=== PATIENT | female | born 1945 | race African-American/Black ===

== ENCOUNTER 2021-09-13 08:07 | Emergency (ER) | payer MEDICARE, MEDICAID ==
[~2021-09-13] VITALS: Ht 162.6 cm; Wt 73.0 kg
[2021-09-13] MEDS ORDERED: IBUPROFEN 600MG TABLET PO ONE (08:45)
[2021-09-13] MEDS ORDERED: CYCLOBENZAPRINE 10MG TABLET PO ONE (08:45)
[2021-09-13 09:10] LABS: BASOPHILS % 0.6 % (0.0-2.0); EOSINOPHILS % 0.9 % (0.0-5.0); HEMOGLOBIN. 11.4 g/dL (12.0-16.0); LYMPHOCYTES % 23.6 % (20.0-50.0); MEAN CORPUSCULAR VOLUME 74.4 fL (81.0-99.0); MEAN PLATELET VOLUME 6.8 fl (7.4-10.4); NEUTROPHILS % 66.9 % (40.0-76.0); PLATELET 349 x1000/uL (130-400); RED BLOOD CELL COUNT 4.58 mill/uL (4.2-5.4); RED CELL DISTRIBUTION WIDTH 14.6 % (11.6-14.6)
[2021-09-13 09:16] LABS: CHLORIDE 105 mEq/L (98-107)
[2021-09-13] MEDS ORDERED: CYCL10TA7 MT (10:57)
[2021-09-13] MEDS ORDERED: IBUP-2030 MT (10:57)
[2021-09-13 11:39] VITALS: BP 156/91
== END 2021-09-13 11:41 | disposition home or self-care (01) ==
LOC: ER 08:07
DX: R16.1 Splenomegaly, not elsewhere classified (principal); M54.9 Dorsalgia, unspecified; I10 Essential (primary) hypertension; E78.00 Pure hypercholesterolemia, unspecified; E11.9 Type 2 diabetes mellitus without complications; Z90.710 Acquired absence of both cervix and uterus; Z98.890 Other specified postprocedural states; Z86.73 Personal history of transient ischemic attack (TIA), and cerebral infarction without residual deficits; Z91.040 Latex allergy status; Z88.0 Allergy status to penicillin; Z79.899 Other long term (current) drug therapy
CPT/HCPCS: 36415; 74176; 80053; 85025; 99284

== ENCOUNTER → 2022-05-01 | Outpatient (CLI) | payer MEDICARE, MEDICAID ==
[~2022-05-01] MED LIST: CYCL10TA21 MT; IBUP-2030 MT
== END | disposition home or self-care (01) ==
LOC: NM 08:41
PROVIDERS: ATTEND Internal Medicine Geriatric Medicine
DX: M41.85 Other forms of scoliosis, thoracolumbar region (principal); C80.1 Malignant (primary) neoplasm, unspecified; M54.50 Low back pain, unspecified; R10.9 Unspecified abdominal pain
CPT/HCPCS: 78306; A9503

== ENCOUNTER 2022-05-11 10:34 | Inpatient (IN) | payer MEDICARE, MEDICAID ==
[~2022-05-11] VITALS: Ht 162.6 cm; Wt 73.5 kg
[2022-05-11] MEDS ORDERED: MORPHINE SULFATE 4 MG/ML CPJ (NOT FOR IM USE) IV STA (11:09)
[2022-05-11] MEDS ORDERED: SODIUM CHLORIDE 0.9% 500 ML IV ONE (11:15)
[2022-05-11 12:05] LABS: BASOPHILS % 0.5 % (0.0-2.0); EOSINOPHILS % 0.1 % (0.0-5.0); HEMATOCRIT. 44.4 % (36.0-48.0); LYMPHOCYTES % 25.9 % (20.0-50.0); MEAN CORPUSCULAR HEMOGLOBIN 23.4 pg (28.0-32.0); MEAN CORPUSCULAR VOLUME 73.9 fL (81.0-99.0); MEAN PLATELET VOLUME 6.6 fl (7.4-10.4); MONOCYTES % 5.8 % (2.0-8.0); NEUTROPHILS % 67.7 % (40.0-76.0); PLATELET 747 x1000/uL (130-400); RED CELL DISTRIBUTION WIDTH 17.8 % (11.6-14.6)
[2022-05-11 12:13] LABS: CHLORIDE 94 mEq/L (98-107)
[2022-05-11] MEDS ORDERED: ASPIRIN 325MG TABLET PO ONE (13:15)
[2022-05-11] MEDS ORDERED: CLONIDINE 0.1MG TABLET PO PRN (14:15)
[2022-05-11] MEDS ORDERED: ONDANSETRON HCL 4MG/2ML INJ IV PRN (14:15)
[2022-05-11] MEDS ORDERED: DEXT 5%/0.45% NACL 1000ML 1,000 ML IV SCH (14:15)
[2022-05-11] MEDS ORDERED: ONDANSETRON HCL 4MG/2ML INJ IV ONE (14:30)
[2022-05-11] MEDS ORDERED: LACTULOSE 20G/30ML UDC PO PRN (15:00)
[2022-05-11] MEDS ORDERED: NA PHOS,M-B/NA PHOS,DI-BA ENEMA 118ML PR NR ×2 (15:00→20:00)
[2022-05-11] MEDS ORDERED: NALOXONE HCL 0.4MG/ML VIAL IV PRN (15:00)
[2022-05-11] MEDS ORDERED: ACETAMINOPHEN 325MG TABLET PO PRN (15:00)
[2022-05-11] MEDS: DOCUSATE SODIUM 100MG CAPSULE PO SCH ×2 (15:46→21:49)
[2022-05-11] MEDS: SODIUM CHLORIDE 0.9% 1,000 ML IV SCH (15:47)
[2022-05-11 17:35] VITALS: BP 134/77
[2022-05-11 20:00] VITALS: BP 130/83
[2022-05-11] MEDS ORDERED: BISACODYL 5MG TABLET PO NR (20:00)
[2022-05-11] MEDS: MORPHINE SULFATE 2 MG/ML CPJ (NOT FOR IM USE) IV PRN (22:03)
[2022-05-12] VITALS: BP 133/76
[2022-05-12] MEDS: SODIUM CHLORIDE 0.9% 1,000 ML IV SCH ×2 (01:03→10:30)
[2022-05-12 04:00] VITALS: BP 143/87
[2022-05-12 05:55] LABS: CLARITY URINE CLEAR (CLEAR); COLOR URINE YELLOW (YELLOW); KETONES URINE 1+ (NEGATIVE); LEUKOCYTE ESTERASE URINE 1+ (NEGATIVE); NITRITE URINE NEGATIVE (NEGATIVE); OCCULT BLOOD URINE NEGATIVE (NEGATIVE); PH URINE 5.5 (4.5-8.0); PROTEIN URINE 1+ (NEGATIVE); SPECIFIC GRAVITY URINE 1.021 (1.005-1.030)
[2022-05-12 07:36] LABS: BASOPHILS % 0.3 % (0.0-2.0); EOSINOPHILS % 0.1 % (0.0-5.0); HEMATOCRIT. 34.5 % (36.0-48.0); HEMOGLOBIN. 11.2 g/dL (12.0-16.0); LYMPHOCYTES % 25.2 % (20.0-50.0); MEAN CORPUSCULAR HEMOGLOBIN 23.6 pg (28.0-32.0); MEAN CORPUSCULAR VOLUME 72.7 fL (81.0-99.0); MEAN PLATELET VOLUME 6.4 fl (7.4-10.4); MONOCYTES % 7.2 % (2.0-8.0); NEUTROPHILS % 67.2 % (40.0-76.0); PLATELET 628 x1000/uL (130-400); RED BLOOD CELL COUNT 4.75 mill/uL (4.2-5.4); RED CELL DISTRIBUTION WIDTH 17.9 % (11.6-14.6)
[2022-05-12 07:51] LABS: CHLORIDE 97 mEq/L (98-107)
[2022-05-12 08:00] VITALS: BP 138/77
[2022-05-12] MEDS: DOCUSATE SODIUM 100MG CAPSULE PO SCH ×2 (09:34→18:58)
[2022-05-12] MEDS: MORPHINE SULFATE 2 MG/ML CPJ (NOT FOR IM USE) IV PRN ×2 (09:46→19:57)
[2022-05-12] MEDS ORDERED: NA PHOS,M-B/NA PHOS,DI-BA ENEMA 118ML PR NR (10:15)
[2022-05-12 16:00] VITALS: BP 149/85
[2022-05-12 20:00] VITALS: BP 138/84
[2022-05-13] VITALS: BP 136/72
[2022-05-13 04:00] VITALS: BP 129/81
[2022-05-13] MEDS: SODIUM CHLORIDE 0.9% 1,000 ML IV SCH ×3 (05:41→19:08)
[2022-05-13 08:00] VITALS: BP 120/80
[2022-05-13 09:58] LABS: BASOPHILS % 0.3 % (0.0-2.0); HEMATOCRIT. 33.9 % (36.0-48.0); HEMOGLOBIN. 11.1 g/dL (12.0-16.0); LYMPHOCYTES % 19.7 % (20.0-50.0); MEAN CORPUSCULAR HEMOGLOBIN 24.1 pg (28.0-32.0); MEAN CORPUSCULAR VOLUME 73.9 fL (81.0-99.0); MEAN PLATELET VOLUME 6.6 fl (7.4-10.4); MONOCYTES % 6.9 % (2.0-8.0); NEUTROPHILS % 73.1 % (40.0-76.0); PLATELET 577 x1000/uL (130-400); RED BLOOD CELL COUNT 4.59 mill/uL (4.2-5.4); RED CELL DISTRIBUTION WIDTH 17.5 % (11.6-14.6)
[2022-05-13] MEDS: DOCUSATE SODIUM 100MG CAPSULE PO SCH ×2 (10:05→17:00)
[2022-05-13] MEDS: HYDROCODONE/ACETAMINOPHEN 5/325MG TABLET PO PRN ×3 (10:20→19:06)
[2022-05-13 10:42] LABS: CHLORIDE 100 mEq/L (98-107)
[2022-05-13 12:00] VITALS: BP 108/73
[2022-05-13 16:00] VITALS: BP 108/73
[2022-05-13] MEDS: LACTULOSE 20G/30ML UDC PO SCH (17:00)
[2022-05-13] MEDS ORDERED: NA PHOS,M-B/NA PHOS,DI-BA ENEMA 118ML PR NR (17:00)
[2022-05-13 20:00] VITALS: BP 116/71
[2022-05-14] VITALS: BP 121/79
[2022-05-14] MEDS: LACTULOSE 20G/30ML UDC PO SCH ×3 (00:11→17:20)
[2022-05-14] MEDS: HYDROCODONE/ACETAMINOPHEN 5/325MG TABLET PO PRN ×4 (00:14→20:12)
[2022-05-14] MEDS: SODIUM CHLORIDE 0.9% 1,000 ML IV SCH ×3 (01:50→21:59)
[2022-05-14 04:00] VITALS: BP 112/59
[2022-05-14 08:00] VITALS: BP 114/76
[2022-05-14 08:05] LABS: BASOPHILS % 0.3 % (0.0-2.0); EOSINOPHILS % 0.1 % (0.0-5.0); HEMATOCRIT. 34.6 % (36.0-48.0); HEMOGLOBIN. 10.6 g/dL (12.0-16.0); LYMPHOCYTES % 18.5 % (20.0-50.0); MEAN CORPUSCULAR HEMOGLOBIN 23.3 pg (28.0-32.0); MEAN CORPUSCULAR VOLUME 75.9 fL (81.0-99.0); MEAN PLATELET VOLUME 6.7 fl (7.4-10.4); MONOCYTES % 8.3 % (2.0-8.0); NEUTROPHILS % 72.8 % (40.0-76.0); PLATELET 464 x1000/uL (130-400); RED BLOOD CELL COUNT 4.55 mill/uL (4.2-5.4); RED CELL DISTRIBUTION WIDTH 17.9 % (11.6-14.6)
[2022-05-14 08:08] LABS: CHLORIDE 99 mEq/L (98-107)
[2022-05-14 08:27] LABS: TOTAL IRON BINDING CAPACITY 190 ug/dL (250-450)
[2022-05-14 08:28] LABS: FOLIC ACID (FOLATE) SERUM 5.6 ng/mL (>5.38)
[2022-05-14] MEDS: DOCUSATE SODIUM 100MG CAPSULE PO SCH ×2 (09:39→17:20)
[2022-05-14] MEDS: PANTOPRAZOLE SODIUM 40 MG/VIAL IV SCH (09:40)
[2022-05-14] MEDS: MORPHINE SULFATE 2 MG/ML CPJ (NOT FOR IM USE) IV PRN (10:25)
[2022-05-14] MEDS ORDERED: LEVOFLOXACIN 500MG PREMIX 100 ML IV SCH (11:00)
[2022-05-14 12:00] VITALS: BP 117/78
[2022-05-14 16:00] VITALS: BP 124/84
[2022-05-14] MEDS ORDERED: SORBITOL 70% SOLN 30ML PO SCH (19:00)
[2022-05-14 20:00] VITALS: BP 113/67
[2022-05-15] VITALS (15 sets, daily range): BP systolic 76–118; BP diastolic 50–79
[2022-05-15] MEDS ORDERED: IOHEXOL-300 100 ML BOTTLE ONE (00:34)
[2022-05-15] MEDS: HYDROCODONE/ACETAMINOPHEN 5/325MG TABLET PO PRN ×2 (00:51→06:38)
[2022-05-15] MEDS: LACTULOSE 20G/30ML UDC PO SCH ×2 (01:00→08:44)
[2022-05-15 01:46] LABS: CLARITY URINE CLEAR (CLEAR); COLOR URINE YELLOW (YELLOW); KETONES URINE 2+ (NEGATIVE); LEUKOCYTE ESTERASE URINE NEGATIVE (NEGATIVE); NITRITE URINE NEGATIVE (NEGATIVE); OCCULT BLOOD URINE NEGATIVE (NEGATIVE); PH URINE 5.5 (4.5-8.0); PROTEIN URINE 1+ (NEGATIVE)
[2022-05-15] MEDS ORDERED: NA PHOS,M-B/NA PHOS,DI-BA ENEMA 118ML PR SCH (06:00)
[2022-05-15] MEDS: ACETAMINOPHEN 325MG TABLET PO PRN ×2 (08:41→15:58)
[2022-05-15] MEDS: PANTOPRAZOLE SODIUM 40 MG/VIAL IV SCH (08:42)
[2022-05-15] MEDS: SODIUM CHLORIDE 0.9% 1,000 ML IV SCH (08:44)
[2022-05-15] MEDS: DOCUSATE SODIUM 100MG CAPSULE PO SCH ×2 (08:44→17:00)
[2022-05-15] MEDS ORDERED: VERAPAMIL HCL 2.5 MG/1 ML 2ML VIAL IV NR (09:15)
[2022-05-15 09:24] LABS: BASOPHILS % 0.6 % (0.0-2.0); HEMATOCRIT. 33.3 % (36.0-48.0); HEMOGLOBIN. 10.5 g/dL (12.0-16.0); LYMPHOCYTES % 10.5 % (20.0-50.0); MEAN CORPUSCULAR HEMOGLOBIN 23.4 pg (28.0-32.0); MEAN CORPUSCULAR VOLUME 74.4 fL (81.0-99.0); MEAN PLATELET VOLUME 6.5 fl (7.4-10.4); MONOCYTES % 7.9 % (2.0-8.0); PLATELET 486 x1000/uL (130-400); RED BLOOD CELL COUNT 4.47 mill/uL (4.2-5.4); RED CELL DISTRIBUTION WIDTH 18.5 % (11.6-14.6)
[2022-05-15 09:30] LABS: CHLORIDE 103 mEq/L (98-107)
[2022-05-15] MEDS ORDERED: DILTIAZEM HCL 125 MG in DEXT 5% WATER 100 ML IV PRN (09:30)
[2022-05-15] MEDS ORDERED: SODIUM CHLORIDE 0.45% 500 ML IV SCH ×2 (10:30)
[2022-05-15] MEDS ORDERED: ENOXAPARIN 60MG/0.6ML SYR SUBCUT SCH (11:00)
[2022-05-15] MEDS ORDERED: LEVOFLOXACIN 250MG PREMIX 50 ML IV SCH (11:00)
[2022-05-15] MEDS: SODIUM CHLORIDE 0.45% 1,000 ML IV SCH ×2 (11:33→21:01)
[2022-05-15 12:47] LABS: INR 1.2; PROTHROMBIN TIME 13.2 sec (9.6-11.0)
[2022-05-15] MEDS: DILTIAZEM HCL 30MG TABLET PO SCH (18:00)
[2022-05-15] MEDS: ENOXAPARIN 60MG/0.6ML SYR SUBCUT SCH (20:58)
[2022-05-15] MEDS: MORPHINE SULFATE 2 MG/ML CPJ (NOT FOR IM USE) IV PRN (21:00)
[2022-05-15] MEDS ORDERED: MAGNESIUM 1 G PREMIX 100 ML IV NR (22:00)
[2022-05-16] VITALS (33 sets, daily range): BP systolic 84–123; BP diastolic 46–91
[2022-05-16] MEDS ORDERED: DILTIAZEM 125MG/125ML PMX 125 ML IV PRN (02:30)
[2022-05-16] MEDS ORDERED: PHENYLEPHRINE 50 MG in DEXT 5% WATER 245 ML IV PRN (02:30)
[2022-05-16] MEDS: MORPHINE SULFATE 2 MG/ML CPJ (NOT FOR IM USE) IV PRN (03:04)
[2022-05-16] MEDS: DILTIAZEM HCL 30MG TABLET PO SCH ×2 (06:00)
[2022-05-16] MEDS: DOCUSATE SODIUM 100MG CAPSULE PO SCH ×2 (09:00→17:00)
[2022-05-16 09:17] LABS: CHLORIDE 101 mEq/L (98-107); EOSINOPHILS % 0.3 % (0.0-5.0); HEMATOCRIT. 32.7 % (36.0-48.0); HEMOGLOBIN. 10.3 g/dL (12.0-16.0); MEAN CORPUSCULAR HEMOGLOBIN 23.6 pg (28.0-32.0); MEAN CORPUSCULAR VOLUME 74.7 fL (81.0-99.0); MEAN PLATELET VOLUME 6.9 fl (7.4-10.4); MONOCYTES % 5.6 % (2.0-8.0); NEUTROPHILS % 85.1 % (40.0-76.0); PLATELET 569 x1000/uL (130-400); RED BLOOD CELL COUNT 4.38 mill/uL (4.2-5.4); RED CELL DISTRIBUTION WIDTH 18.4 % (11.6-14.6)
[2022-05-16] MEDS ORDERED: VANCOMYCIN 1GM PMX (XELLIA) 200 ML IV SCH (11:00)
[2022-05-16] MEDS: PANTOPRAZOLE SODIUM 40 MG/VIAL IV SCH (11:24)
[2022-05-16] MEDS: CLINDAMYCIN 600MG PREMIX 50 ML IV SCH ×2 (11:24→21:12)
[2022-05-16] MEDS: ENOXAPARIN 60MG/0.6ML SYR SUBCUT SCH ×2 (11:25→21:12)
[2022-05-16] MEDS: MIDODRINE HCL 2.5MG TABLET PO SCH ×3 (11:25→17:30)
[2022-05-16] MEDS: AMIODARONE HCL 200 MG TABLET PO SCH ×2 (11:26→22:26)
[2022-05-16] MEDS: SODIUM CHLORIDE 0.9% 1,000 ML IV SCH (11:26)
[2022-05-16] MEDS: METOPROLOL TARTRATE 25MG TABLET PO SCH ×2 (12:42→21:00)
[2022-05-16] MEDS: HYDROCODONE/ACETAMINOPHEN 5/325MG TABLET PO PRN (12:45)
[2022-05-16] MEDS: ACETAMINOPHEN 325MG TABLET PO PRN (21:41)
[2022-05-16] MEDS ORDERED: VANCOMYCIN 500MG PREMIX 100 ML IV SCH (22:00)
[2022-05-17] VITALS (27 sets, daily range): BP systolic 85–125; BP diastolic 42–60
[2022-05-17] MEDS: CLINDAMYCIN 600MG PREMIX 50 ML IV SCH ×2 (05:25→13:37)
[2022-05-17] MEDS ORDERED: VANCOMYCIN 750MG PREMIX 150 ML IV SCH (06:00)
[2022-05-17] MEDS ORDERED: LIDOCAINE HCL 1% 50ML VIAL (10MG/ML) ONE (07:39)
[2022-05-17 08:09] LABS: BASOPHILS % 0.2 % (0.0-2.0); EOSINOPHILS % 0.1 % (0.0-5.0); HEMOGLOBIN. 9.6 g/dL (12.0-16.0); LYMPHOCYTES % 9.1 % (20.0-50.0); MEAN CORPUSCULAR HEMOGLOBIN 23.3 pg (28.0-32.0); MEAN CORPUSCULAR VOLUME 72.8 fL (81.0-99.0); MEAN PLATELET VOLUME 7.4 fl (7.4-10.4); MONOCYTES % 5.4 % (2.0-8.0); NEUTROPHILS % 85.2 % (40.0-76.0); PLATELET 515 x1000/uL (130-400); RED BLOOD CELL COUNT 4.13 mill/uL (4.2-5.4); RED CELL DISTRIBUTION WIDTH 18.2 % (11.6-14.6)
[2022-05-17] MEDS: MIDODRINE HCL 2.5MG TABLET PO SCH ×3 (08:46→17:30)
[2022-05-17] MEDS: DOCUSATE SODIUM 100MG CAPSULE PO SCH ×2 (09:00→16:50)
[2022-05-17] MEDS: METOPROLOL TARTRATE 25MG TABLET PO SCH ×2 (09:57→20:00)
[2022-05-17] MEDS: PANTOPRAZOLE SODIUM 40 MG/VIAL IV SCH (09:57)
[2022-05-17] MEDS: AMIODARONE HCL 200 MG TABLET PO SCH ×2 (09:57→21:25)
[2022-05-17] MEDS: ACETAMINOPHEN 325MG TABLET PO PRN ×2 (09:57→20:49)
[2022-05-17] MEDS: SODIUM CHLORIDE 0.9% 1,000 ML IV SCH (09:58)
[2022-05-17] MEDS: MEGESTROL ACETATE 400 MG/10 ML UDC PO SCH (16:50)
[2022-05-17] MEDS: AZTREONAM 2 GM in DEXT 5% WATER 100 ML IV SCH (16:51)
[2022-05-17] MEDS: MIRTAZAPINE 15MG TABLET PO SCH (20:49)
[2022-05-17] MEDS: ENOXAPARIN 30MG/0.3ML SYR SUBCUT SCH (20:49)
[2022-05-18] VITALS (16 sets, daily range): BP systolic 94–134; BP diastolic 44–64
[2022-05-18] MEDS: SODIUM CHLORIDE 0.9% 1,000 ML IV SCH ×3 (01:11→17:07)
[2022-05-18] MEDS: AZTREONAM 2 GM in DEXT 5% WATER 100 ML IV SCH ×2 (04:58→17:07)
[2022-05-18 06:58] LABS: BASOPHILS % 0.2 % (0.0-2.0); EOSINOPHILS % 0.1 % (0.0-5.0); HEMOGLOBIN. 9.7 g/dL (12.0-16.0); LYMPHOCYTES % 10.8 % (20.0-50.0); MEAN CORPUSCULAR HEMOGLOBIN 23.5 pg (28.0-32.0); MEAN CORPUSCULAR VOLUME 72.6 fL (81.0-99.0); MEAN PLATELET VOLUME 7.4 fl (7.4-10.4); MONOCYTES % 4.7 % (2.0-8.0); NEUTROPHILS % 84.2 % (40.0-76.0); PLATELET 430 x1000/uL (130-400); RED BLOOD CELL COUNT 4.14 mill/uL (4.2-5.4); RED CELL DISTRIBUTION WIDTH 18.3 % (11.6-14.6)
[2022-05-18] MEDS: AMIODARONE HCL 200 MG TABLET PO SCH ×2 (08:47→20:45)
[2022-05-18] MEDS: PANTOPRAZOLE SODIUM 40 MG/VIAL IV SCH (08:48)
[2022-05-18] MEDS: MEGESTROL ACETATE 400 MG/10 ML UDC PO SCH (08:48)
[2022-05-18] MEDS: DOCUSATE SODIUM 100MG CAPSULE PO SCH ×2 (08:48→16:50)
[2022-05-18] MEDS: METOPROLOL TARTRATE 25MG TABLET PO SCH ×2 (08:48→20:47)
[2022-05-18] MEDS: MIDODRINE HCL 2.5MG TABLET PO SCH ×3 (08:52→17:06)
[2022-05-18] MEDS ORDERED: LACTULOSE 20G/30ML UDC PO NR (13:00)
[2022-05-18] MEDS: ENOXAPARIN 30MG/0.3ML SYR SUBCUT SCH (20:46)
[2022-05-18] MEDS: MIRTAZAPINE 15MG TABLET PO SCH (20:46)
[2022-05-19] VITALS (10 sets, daily range): BP systolic 103–117; BP diastolic 34–63
[2022-05-19] MEDS: AZTREONAM 2 GM in DEXT 5% WATER 100 ML IV SCH ×2 (05:46→17:37)
[2022-05-19] MEDS: SODIUM CHLORIDE 0.9% 1,000 ML IV SCH (05:46)
[2022-05-19 08:22] LABS: HEMATOCRIT. 30.1 % (36.0-48.0); HEMOGLOBIN. 9.7 g/dL (12.0-16.0); MEAN CORPUSCULAR HEMOGLOBIN 23.5 pg (28.0-32.0); MEAN CORPUSCULAR VOLUME 72.8 fL (81.0-99.0); MEAN PLATELET VOLUME 6.7 fl (7.4-10.4); PLATELET 417 x1000/uL (130-400); RED BLOOD CELL COUNT 4.13 mill/uL (4.2-5.4); RED CELL DISTRIBUTION WIDTH 18.4 % (11.6-14.6)
[2022-05-19] MEDS ORDERED: GUAIFENESIN 200MG/10ML SUGAR FREE UDC PO PRN (08:45)
[2022-05-19] MEDS: PANTOPRAZOLE SODIUM 40 MG/VIAL IV SCH (09:00)
[2022-05-19] MEDS: MIDODRINE HCL 2.5MG TABLET PO SCH ×3 (09:00→17:37)
[2022-05-19] MEDS: DOCUSATE SODIUM 100MG CAPSULE PO SCH ×2 (10:22→17:37)
[2022-05-19] MEDS: SODIUM CHLORIDE 0.45% 1,000 ML IV SCH (10:22)
[2022-05-19] MEDS: INSULIN GLARGINE 100 UNITS/ML SUBCUT SCH (10:31)
[2022-05-19 13:53] LABS: NUCLEATED RED BLOOD CELLS 1 /100 WBC; PLATELET ESTIMATE SLIGHTLY INCREASED
[2022-05-19] MEDS: BLOOD SUGAR DIAGNOSTIC STRIP TEST SCH ×2 (17:24→20:47)
[2022-05-19] MEDS: INSULIN LISPRO 100 UNITS/ML SUBCUT SCH ×2 (17:37→20:59)
[2022-05-19] MEDS: IPRATROPIUM/ALBUTEROL 0.5-3(2.5)MG/3ML NEB HHN SCH (20:30)
[2022-05-19] MEDS: MIRTAZAPINE 15MG TABLET PO SCH (20:46)
[2022-05-19] MEDS: AMIODARONE HCL 200 MG TABLET PO SCH (20:47)
[2022-05-19] MEDS: METOPROLOL TARTRATE 50MG TABLET PO SCH (20:47)
[2022-05-19] MEDS: ENOXAPARIN 30MG/0.3ML SYR SUBCUT SCH (20:50)
[2022-05-19] MEDS: ACETAMINOPHEN 325MG TABLET PO PRN (21:02)
[2022-05-20] VITALS (11 sets, daily range): BP systolic 91–122; BP diastolic 47–64
[2022-05-20] MEDS: IPRATROPIUM/ALBUTEROL 0.5-3(2.5)MG/3ML NEB HHN SCH ×4 (02:28→20:50)
[2022-05-20] MEDS: SODIUM CHLORIDE 0.45% 1,000 ML IV SCH (04:46)
[2022-05-20] MEDS: AZTREONAM 2 GM in DEXT 5% WATER 100 ML IV SCH ×2 (04:46→17:14)
[2022-05-20 06:09] LABS: HEMATOCRIT. 26.3 % (36.0-48.0); HEMOGLOBIN. 8.4 g/dL (12.0-16.0); MEAN CORPUSCULAR VOLUME 71.9 fL (81.0-99.0); MEAN PLATELET VOLUME 6.7 fl (7.4-10.4); PLATELET 318 x1000/uL (130-400); RED BLOOD CELL COUNT 3.65 mill/uL (4.2-5.4); RED CELL DISTRIBUTION WIDTH 18.2 % (11.6-14.6)
[2022-05-20] MEDS: BLOOD SUGAR DIAGNOSTIC STRIP TEST SCH ×4 (07:55→21:26)
[2022-05-20] MEDS: INSULIN LISPRO 100 UNITS/ML SUBCUT SCH ×4 (07:56→21:00)
[2022-05-20] MEDS: AMIODARONE HCL 200 MG TABLET PO SCH ×2 (08:43→21:26)
[2022-05-20] MEDS: MIDODRINE HCL 2.5MG TABLET PO SCH ×3 (08:43→17:14)
[2022-05-20] MEDS: PANTOPRAZOLE SODIUM 40 MG/VIAL IV SCH (08:44)
[2022-05-20] MEDS: METOPROLOL TARTRATE 50MG TABLET PO SCH ×2 (08:45→21:25)
[2022-05-20] MEDS: INSULIN GLARGINE 100 UNITS/ML SUBCUT SCH (08:45)
[2022-05-20] MEDS: DOCUSATE SODIUM 100MG CAPSULE PO SCH (08:45)
[2022-05-20 09:51] LABS: NUCLEATED RED BLOOD CELLS 4 /100 WBC; PLATELET ESTIMATE NORMAL
[2022-05-20] MEDS ORDERED: POTASSIUM CHLORIDE 20MEQ TABLET SR PO NR (12:30)
[2022-05-20] MEDS: SODIUM CHL 0.9% + KCL 20MEQ/L 1,000 ML IV SCH (13:51)
[2022-05-20] MEDS: LACTOBACILLUS GG CAPSULE PO SCH (13:51)
[2022-05-20] MEDS: ACETYLCYSTEINE 100MG/ML 10% VIAL 4ML INH SCH (15:18)
[2022-05-20 16:23] LABS: TOTAL IRON BINDING CAPACITY 110 ug/dL (250-450)
[2022-05-20] MEDS: FERROUS SULFATE 325MG TABLET PO SCH (17:14)
[2022-05-20] MEDS ORDERED: EPOETIN ALFA-EPBX 4,000 UNIT/ML VIAL SUBCUT NR (21:00)
[2022-05-20] MEDS: MIRTAZAPINE 15MG TABLET PO SCH (21:25)
[2022-05-20] MEDS: ENOXAPARIN 30MG/0.3ML SYR SUBCUT SCH (21:25)
[2022-05-21] VITALS (13 sets, daily range): BP systolic 108–142; BP diastolic 56–80
[2022-05-21] MEDS: ACETYLCYSTEINE 100MG/ML 10% VIAL 4ML INH SCH ×4 (01:00→17:35)
[2022-05-21] MEDS: SODIUM CHL 0.9% + KCL 20MEQ/L 1,000 ML IV SCH (02:11)
[2022-05-21] MEDS: IPRATROPIUM/ALBUTEROL 0.5-3(2.5)MG/3ML NEB HHN SCH ×5 (02:26→20:00)
[2022-05-21] MEDS: AZTREONAM 2 GM in DEXT 5% WATER 100 ML IV SCH ×2 (05:38→17:09)
[2022-05-21 06:20] LABS: HEMATOCRIT. 30.9 % (36.0-48.0); HEMOGLOBIN. 9.9 g/dL (12.0-16.0); MEAN CORPUSCULAR HEMOGLOBIN 23.1 pg (28.0-32.0); MEAN PLATELET VOLUME 6.9 fl (7.4-10.4); PLATELET 303 x1000/uL (130-400); RED CELL DISTRIBUTION WIDTH 18.5 % (11.6-14.6)
[2022-05-21] MEDS: BLOOD SUGAR DIAGNOSTIC STRIP TEST SCH ×4 (07:11→21:00)
[2022-05-21] MEDS: INSULIN LISPRO 100 UNITS/ML SUBCUT SCH ×4 (08:00→22:22)
[2022-05-21] MEDS: MULTIVITAMINS,THER W-MINERALS TABLET PO SCH (08:38)
[2022-05-21] MEDS: FERROUS SULFATE 325MG TABLET PO SCH ×2 (08:38→17:09)
[2022-05-21] MEDS: MIDODRINE HCL 2.5MG TABLET PO SCH ×3 (08:38→17:09)
[2022-05-21] MEDS: PANTOPRAZOLE SODIUM 40 MG/VIAL IV SCH (08:39)
[2022-05-21] MEDS: LACTOBACILLUS GG CAPSULE PO SCH (08:39)
[2022-05-21] MEDS: AMIODARONE HCL 200 MG TABLET PO SCH ×2 (08:39→22:01)
[2022-05-21] MEDS: METOPROLOL TARTRATE 50MG TABLET PO SCH ×2 (08:40→22:01)
[2022-05-21] MEDS: INSULIN GLARGINE 100 UNITS/ML SUBCUT SCH (08:41)
[2022-05-21 08:56] LABS: NUCLEATED RED BLOOD CELLS 5 /100 WBC; PLATELET ESTIMATE NORMAL
[2022-05-21] MEDS ORDERED: IPRATROPIUM/ALBUTEROL 0.5-3(2.5)MG/3ML NEB HHN PRN (09:45)
[2022-05-21] MEDS: DIPHENOXYLATE/ATROPINE 2.5/0.025MG TABLET PO PRN (10:19)
[2022-05-21] MEDS: ACETAMINOPHEN 325MG TABLET PO PRN (10:20)
[2022-05-21] MEDS ORDERED: MAGNESIUM 2 G PREMIX 50 ML IV SCH (11:00)
[2022-05-21] MEDS: MEROPENEM 1,000 MG in SODIUM CHLORIDE 0.9% 100 ML IV SCH (22:01)
[2022-05-21] MEDS: ENOXAPARIN 30MG/0.3ML SYR SUBCUT SCH (22:01)
[2022-05-21] MEDS: MIRTAZAPINE 15MG TABLET PO SCH (22:02)
[2022-05-22] VITALS (14 sets, daily range): BP systolic 103–147; BP diastolic 53–91
[2022-05-22] MEDS: IPRATROPIUM/ALBUTEROL 0.5-3(2.5)MG/3ML NEB HHN SCH ×4 (01:00→12:00)
[2022-05-22 06:41] LABS: HEMATOCRIT. 28.7 % (36.0-48.0); HEMOGLOBIN. 9.2 g/dL (12.0-16.0); MEAN CORPUSCULAR HEMOGLOBIN 23.2 pg (28.0-32.0); MEAN PLATELET VOLUME 6.9 fl (7.4-10.4); PLATELET 248 x1000/uL (130-400); RED BLOOD CELL COUNT 3.99 mill/uL (4.2-5.4); RED CELL DISTRIBUTION WIDTH 18.1 % (11.6-14.6)
[2022-05-22 07:00] LABS: CHLORIDE 108 mEq/L (98-107)
[2022-05-22] MEDS: BLOOD SUGAR DIAGNOSTIC STRIP TEST SCH ×4 (07:30→20:58)
[2022-05-22] MEDS: INSULIN LISPRO 100 UNITS/ML SUBCUT SCH ×4 (08:00→21:00)
[2022-05-22] MEDS: ACETYLCYSTEINE 100MG/ML 10% VIAL 4ML INH SCH (08:43)
[2022-05-22] MEDS: MIDODRINE HCL 2.5MG TABLET PO SCH ×3 (09:22→17:32)
[2022-05-22] MEDS: FERROUS SULFATE 325MG TABLET PO SCH ×2 (09:22→17:32)
[2022-05-22] MEDS: METOPROLOL TARTRATE 50MG TABLET PO SCH ×2 (09:22→20:51)
[2022-05-22] MEDS: PANTOPRAZOLE SODIUM 40 MG/VIAL IV SCH (09:22)
[2022-05-22] MEDS: AMIODARONE HCL 200 MG TABLET PO SCH ×2 (09:22→20:51)
[2022-05-22] MEDS: MULTIVITAMINS,THER W-MINERALS TABLET PO SCH (09:22)
[2022-05-22] MEDS: LACTOBACILLUS GG CAPSULE PO SCH (09:22)
[2022-05-22] MEDS: MEROPENEM 1,000 MG in SODIUM CHLORIDE 0.9% 100 ML IV SCH ×2 (09:23→21:00)
[2022-05-22 09:54] LABS: PLATELET ESTIMATE NORMAL
[2022-05-22] MEDS: INSULIN GLARGINE 100 UNITS/ML SUBCUT SCH (10:50)
[2022-05-22] MEDS: ACETAMINOPHEN 325MG TABLET PO PRN (12:17)
[2022-05-22] MEDS ORDERED: ALBUTEROL 6.7GM HFA INHALER ORI PRN (14:30)
[2022-05-22] MEDS ORDERED: SENNOSIDES 8.6MG TABLET PO PRN (16:00)
[2022-05-22] MEDS: DOCUSATE SODIUM 100MG CAPSULE PO SCH (17:32)
[2022-05-22] MEDS: MIRTAZAPINE 15MG TABLET PO SCH (20:51)
[2022-05-22] MEDS: ENOXAPARIN 30MG/0.3ML SYR SUBCUT SCH (20:53)
[2022-05-23] VITALS: BP 154/87
[2022-05-23 04:00] VITALS: BP 149/74
[2022-05-23] MEDS: ACETAMINOPHEN 325MG TABLET PO PRN (04:15)
[2022-05-23] MEDS: INSULIN LISPRO 100 UNITS/ML SUBCUT SCH ×4 (06:26→21:00)
[2022-05-23] MEDS: BLOOD SUGAR DIAGNOSTIC STRIP TEST SCH ×4 (06:26→21:30)
[2022-05-23 06:45] LABS: CHLORIDE 108 mEq/L (98-107)
[2022-05-23 07:15] LABS: HEMATOCRIT. 29.3 % (36.0-48.0); HEMOGLOBIN. 9.1 g/dL (12.0-16.0); MEAN CORPUSCULAR HEMOGLOBIN 23.3 pg (28.0-32.0); MEAN CORPUSCULAR VOLUME 74.6 fL (81.0-99.0); MEAN PLATELET VOLUME 7.2 fl (7.4-10.4); PLATELET 254 x1000/uL (130-400); RED BLOOD CELL COUNT 3.93 mill/uL (4.2-5.4); RED CELL DISTRIBUTION WIDTH 19.1 % (11.6-14.6)
[2022-05-23 08:00] VITALS: BP 157/90
[2022-05-23] MEDS: LACTOBACILLUS GG CAPSULE PO SCH (09:25)
[2022-05-23] MEDS: FERROUS SULFATE 325MG TABLET PO SCH ×2 (09:26→16:37)
[2022-05-23] MEDS: AMIODARONE HCL 200 MG TABLET PO SCH ×2 (09:26→21:28)
[2022-05-23] MEDS: MULTIVITAMINS,THER W-MINERALS TABLET PO SCH (09:26)
[2022-05-23] MEDS: DOCUSATE SODIUM 100MG CAPSULE PO SCH ×2 (09:27→16:37)
[2022-05-23] MEDS: METOPROLOL TARTRATE 50MG TABLET PO SCH ×2 (09:27→21:28)
[2022-05-23] MEDS ORDERED: MIDODRINE HCL 2.5MG TABLET PO PRN (09:30)
[2022-05-23] MEDS: PANTOPRAZOLE SODIUM 40 MG/VIAL IV SCH (09:35)
[2022-05-23] MEDS: GUAIFENESIN 600MG ER TABLET PO SCH ×2 (10:44→21:28)
[2022-05-23] MEDS: INSULIN GLARGINE 100 UNITS/ML SUBCUT SCH (10:46)
[2022-05-23] MEDS: MEROPENEM 1,000 MG in SODIUM CHLORIDE 0.9% 100 ML IV SCH ×2 (10:46→21:27)
[2022-05-23 12:00] VITALS: BP 141/99
[2022-05-23 16:00] VITALS: BP 127/68
[2022-05-23] MEDS: MONTELUKAST SODIUM 10MG TABLET PO SCH (16:37)
[2022-05-23] MEDS: ALBUTEROL 6.7GM HFA INHALER ORI SCH ×3 (16:37→23:29)
[2022-05-23] MEDS: HYDROCODONE/ACETAMINOPHEN 5/325MG TABLET PO PRN (16:57)
[2022-05-23 17:44] LABS: PLATELET ESTIMATE NORMAL
[2022-05-23 20:00] VITALS: BP 115/60
[2022-05-23] MEDS: EPOETIN ALFA-EPBX 4,000 UNIT/ML VIAL SUBCUT SCH ×2 (21:00→23:30)
[2022-05-23] MEDS: ENOXAPARIN 30MG/0.3ML SYR SUBCUT SCH (21:27)
[2022-05-23] MEDS: MIRTAZAPINE 15MG TABLET PO SCH (21:28)
[2022-05-24] VITALS: BP 122/68
[2022-05-24 04:00] VITALS: BP 126/67
[2022-05-24] MEDS: BLOOD SUGAR DIAGNOSTIC STRIP TEST SCH ×4 (06:23→20:46)
[2022-05-24] MEDS: ALBUTEROL 6.7GM HFA INHALER ORI SCH ×4 (06:23→23:43)
[2022-05-24 07:43] LABS: HEMATOCRIT. 29.4 % (36.0-48.0); HEMOGLOBIN. 9.5 g/dL (12.0-16.0); MEAN CORPUSCULAR HEMOGLOBIN 23.2 pg (28.0-32.0); MEAN CORPUSCULAR VOLUME 72.1 fL (81.0-99.0); MEAN PLATELET VOLUME 7.5 fl (7.4-10.4); PLATELET 282 x1000/uL (130-400); RED BLOOD CELL COUNT 4.08 mill/uL (4.2-5.4); RED CELL DISTRIBUTION WIDTH 18.6 % (11.6-14.6)
[2022-05-24 07:49] LABS: CHLORIDE 108 mEq/L (98-107)
[2022-05-24 08:00] VITALS: BP 130/75
[2022-05-24] MEDS: INSULIN LISPRO 100 UNITS/ML SUBCUT SCH ×4 (08:02→20:46)
[2022-05-24] MEDS: MEROPENEM 1,000 MG in SODIUM CHLORIDE 0.9% 100 ML IV SCH ×2 (09:13→20:59)
[2022-05-24] MEDS: GUAIFENESIN 600MG ER TABLET PO SCH ×2 (09:14→20:59)
[2022-05-24] MEDS: MULTIVITAMINS,THER W-MINERALS TABLET PO SCH (09:14)
[2022-05-24] MEDS: AMIODARONE HCL 200 MG TABLET PO SCH ×2 (09:14→20:59)
[2022-05-24] MEDS: METOPROLOL TARTRATE 50MG TABLET PO SCH ×2 (09:14→20:59)
[2022-05-24] MEDS: FERROUS SULFATE 325MG TABLET PO SCH ×2 (09:14→17:42)
[2022-05-24] MEDS: DOCUSATE SODIUM 100MG CAPSULE PO SCH ×2 (09:14→17:42)
[2022-05-24] MEDS: PANTOPRAZOLE SODIUM 40 MG/VIAL IV SCH (09:14)
[2022-05-24] MEDS: LACTOBACILLUS GG CAPSULE PO SCH (09:14)
[2022-05-24] MEDS: INSULIN GLARGINE 100 UNITS/ML SUBCUT SCH (10:41)
[2022-05-24] MEDS: HYDROCODONE/ACETAMINOPHEN 5/325MG TABLET PO PRN ×2 (10:57→21:00)
[2022-05-24 12:00] VITALS: BP 115/64
[2022-05-24] MEDS: VANCOMYCIN 1000MG/20ML ORAL SOLN PO SCH ×3 (12:55→23:43)
[2022-05-24 16:00] VITALS: BP 120/78
[2022-05-24 16:53] LABS: PLATELET ESTIMATE NORMAL
[2022-05-24] MEDS: MONTELUKAST SODIUM 10MG TABLET PO SCH (17:42)
[2022-05-24 20:00] VITALS: BP 129/65
[2022-05-24] MEDS: ENOXAPARIN 30MG/0.3ML SYR SUBCUT SCH (21:01)
[2022-05-24] MEDS: MIRTAZAPINE 15MG TABLET PO SCH (21:01)
[2022-05-25] VITALS: BP 128/62
[2022-05-25 04:00] VITALS: BP 118/69
[2022-05-25] MEDS: ALBUTEROL 6.7GM HFA INHALER ORI SCH ×3 (05:12→17:13)
[2022-05-25] MEDS: VANCOMYCIN 1000MG/20ML ORAL SOLN PO SCH ×3 (05:12→17:13)
[2022-05-25] MEDS: INSULIN LISPRO 100 UNITS/ML SUBCUT SCH ×4 (05:54→21:00)
[2022-05-25] MEDS: BLOOD SUGAR DIAGNOSTIC STRIP TEST SCH ×4 (05:54→21:00)
[2022-05-25 07:01] LABS: HEMATOCRIT. 28.5 % (36.0-48.0); HEMOGLOBIN. 9.2 g/dL (12.0-16.0); MEAN CORPUSCULAR HEMOGLOBIN 23.4 pg (28.0-32.0); MEAN CORPUSCULAR VOLUME 72.2 fL (81.0-99.0); MEAN PLATELET VOLUME 7.8 fl (7.4-10.4); PLATELET 306 x1000/uL (130-400); RED BLOOD CELL COUNT 3.94 mill/uL (4.2-5.4); RED CELL DISTRIBUTION WIDTH 18.8 % (11.6-14.6)
[2022-05-25 07:23] LABS: CHLORIDE 109 mEq/L (98-107)
[2022-05-25 08:00] VITALS: BP 127/72
[2022-05-25] MEDS: METOPROLOL TARTRATE 50MG TABLET PO SCH ×2 (09:00→21:00)
[2022-05-25] MEDS: LACTOBACILLUS GG CAPSULE PO SCH (09:00)
[2022-05-25] MEDS: FERROUS SULFATE 325MG TABLET PO SCH ×2 (09:00→17:12)
[2022-05-25] MEDS: MULTIVITAMINS,THER W-MINERALS TABLET PO SCH (09:00)
[2022-05-25] MEDS: AMIODARONE HCL 200 MG TABLET PO SCH ×2 (09:00→21:00)
[2022-05-25] MEDS: GUAIFENESIN 600MG ER TABLET PO SCH ×2 (09:00→21:00)
[2022-05-25] MEDS: DOCUSATE SODIUM 100MG CAPSULE PO SCH ×2 (09:00→17:12)
[2022-05-25] MEDS: INSULIN GLARGINE 100 UNITS/ML SUBCUT SCH (09:09)
[2022-05-25] MEDS ORDERED: DEXAMETHASONE 4MG TABLET PO SCH (09:15)
[2022-05-25] MEDS: DEXT 5%/0.45% NACL 1000ML 1,000 ML IV SCH (09:17)
[2022-05-25] MEDS: MEROPENEM 1,000 MG in SODIUM CHLORIDE 0.9% 100 ML IV SCH ×2 (09:17→21:00)
[2022-05-25] MEDS: PANTOPRAZOLE SODIUM 40 MG/VIAL IV SCH (09:17)
[2022-05-25] MEDS ORDERED: FUROSEMIDE 20MG/2ML VIAL IVP SCH (10:00)
[2022-05-25] MEDS ORDERED: DEXAMETHASONE 4MG/ML 1ML VIAL IV SCH (11:00)
[2022-05-25 12:00] VITALS: BP 117/72
[2022-05-25] MEDS: DEXAMETHASONE 4MG TABLET PO SCH ×2 (12:00→17:13)
[2022-05-25 14:08] LABS: NUCLEATED RED BLOOD CELLS 1 /100 WBC; PLATELET ESTIMATE NORMAL
[2022-05-25] MEDS: MONTELUKAST SODIUM 10MG TABLET PO SCH (17:13)
[2022-05-25 20:00] VITALS: BP 118/69
[2022-05-25] MEDS: EPOETIN ALFA-EPBX 4,000 UNIT/ML VIAL SUBCUT SCH (21:00)
[2022-05-25] MEDS: MIRTAZAPINE 15MG TABLET PO SCH (21:00)
[2022-05-25] MEDS: ENOXAPARIN 30MG/0.3ML SYR SUBCUT SCH (21:00)
[2022-05-25] MEDS: HYDROCODONE/ACETAMINOPHEN 5/325MG TABLET PO PRN (21:24)
[2022-05-26] MEDS: DEXAMETHASONE 4MG TABLET PO SCH ×4 (06:00→17:37)
[2022-05-26] MEDS: ALBUTEROL 6.7GM HFA INHALER ORI SCH ×4 (06:00→17:38)
[2022-05-26] MEDS: VANCOMYCIN 1000MG/20ML ORAL SOLN PO SCH ×4 (06:00→17:47)
[2022-05-26 06:50] LABS: HEMATOCRIT. 29.2 % (36.0-48.0); HEMOGLOBIN. 9.3 g/dL (12.0-16.0); MEAN CORPUSCULAR HEMOGLOBIN 23.3 pg (28.0-32.0); MEAN CORPUSCULAR VOLUME 73.3 fL (81.0-99.0); MEAN PLATELET VOLUME 7.4 fl (7.4-10.4); PLATELET 361 x1000/uL (130-400); RED BLOOD CELL COUNT 3.98 mill/uL (4.2-5.4); RED CELL DISTRIBUTION WIDTH 18.8 % (11.6-14.6)
[2022-05-26 06:57] LABS: CHLORIDE 105 mEq/L (98-107)
[2022-05-26] MEDS: BLOOD SUGAR DIAGNOSTIC STRIP TEST SCH ×4 (07:54→21:00)
[2022-05-26 08:00] VITALS: BP 145/72
[2022-05-26 08:30] LABS: PLATELET ESTIMATE NORMAL
[2022-05-26] MEDS: METOPROLOL TARTRATE 50MG TABLET PO SCH ×2 (09:00→21:00)
[2022-05-26] MEDS: GUAIFENESIN 600MG ER TABLET PO SCH ×2 (09:00→21:00)
[2022-05-26] MEDS: MULTIVITAMINS,THER W-MINERALS TABLET PO SCH (09:00)
[2022-05-26] MEDS: FERROUS SULFATE 325MG TABLET PO SCH ×2 (09:00→17:37)
[2022-05-26] MEDS: DOCUSATE SODIUM 100MG CAPSULE PO SCH ×2 (09:00→17:37)
[2022-05-26] MEDS: LACTOBACILLUS GG CAPSULE PO SCH (09:00)
[2022-05-26] MEDS: AMIODARONE HCL 200 MG TABLET PO SCH ×2 (09:00→21:00)
[2022-05-26] MEDS: MEROPENEM 1,000 MG in SODIUM CHLORIDE 0.9% 100 ML IV SCH ×2 (09:24→21:00)
[2022-05-26] MEDS: PANTOPRAZOLE SODIUM 40 MG/VIAL IV SCH (09:24)
[2022-05-26] MEDS: FUROSEMIDE 20MG/2ML VIAL IVP SCH (09:24)
[2022-05-26] MEDS: INSULIN LISPRO 100 UNITS/ML SUBCUT SCH ×4 (09:29→21:00)
[2022-05-26] MEDS: INSULIN GLARGINE 100 UNITS/ML SUBCUT SCH (10:00)
[2022-05-26] MEDS: DEXT 5%/0.45% NACL 1000ML 1,000 ML IV SCH (10:40)
[2022-05-26 12:00] VITALS: BP 135/76
[2022-05-26 16:00] VITALS: BP 134/75
[2022-05-26] MEDS: MONTELUKAST SODIUM 10MG TABLET PO SCH (17:37)
[2022-05-26] MEDS: MIRTAZAPINE 15MG TABLET PO SCH (21:00)
[2022-05-26] MEDS: ENOXAPARIN 30MG/0.3ML SYR SUBCUT SCH (21:00)
[2022-05-27] VITALS: BP 135/76
[2022-05-27] MEDS: ALBUTEROL 6.7GM HFA INHALER ORI SCH ×3 (06:00→23:36)
[2022-05-27] MEDS: VANCOMYCIN 1000MG/20ML ORAL SOLN PO SCH ×5 (06:01→23:41)
[2022-05-27] MEDS: INSULIN LISPRO 100 UNITS/ML SUBCUT SCH ×4 (06:01→20:41)
[2022-05-27] MEDS: DEXAMETHASONE 4MG TABLET PO SCH ×3 (06:01→12:40)
[2022-05-27 06:35] LABS: HEMATOCRIT. 29.5 % (36.0-48.0); HEMOGLOBIN. 9.4 g/dL (12.0-16.0); MEAN CORPUSCULAR HEMOGLOBIN 23.2 pg (28.0-32.0); MEAN CORPUSCULAR VOLUME 72.7 fL (81.0-99.0); MEAN PLATELET VOLUME 7.3 fl (7.4-10.4); PLATELET 440 x1000/uL (130-400); RED BLOOD CELL COUNT 4.06 mill/uL (4.2-5.4); RED CELL DISTRIBUTION WIDTH 19.1 % (11.6-14.6)
[2022-05-27 07:06] LABS: CHLORIDE 109 mEq/L (98-107)
[2022-05-27] MEDS: BLOOD SUGAR DIAGNOSTIC STRIP TEST SCH ×4 (07:33→21:20)
[2022-05-27 08:00] VITALS: BP 139/87
[2022-05-27 09:29] LABS: BG BASE EXCESS -9.9 mmol/L (-2.0-2.0); BG CARBOXYHEMOGLOBIN 0.3 % (0.5-1.5); BG DEOXYHEMOGLOBIN 4.1 % (0.0-5.0); BG FRACTION INSPIRED OXYGEN 21; BG HCO3 ACT 13.3 mmol/L (22.0-26.0); BG OXYGEN SATURATION 95.9 % (92.0-98.5); BG OXYHEMOGLOBIN 95.6 % (94.0-97.0); BG PCO2 21.8 mmHg (35.0-45.0); BG PH 7.402 (7.350-7.450); BG PO2 83.1 mmHg (75.0-100.0); BG SAMPLE SITE LEFT RADIAL; BG TOTAL HEMOGLOBIN 10.2 g/dL (12.0-18.0); BG VENT MODE ROOM AIR
[2022-05-27] MEDS: METOPROLOL TARTRATE 50MG TABLET PO SCH ×2 (09:29→20:35)
[2022-05-27] MEDS: MEROPENEM 1,000 MG in SODIUM CHLORIDE 0.9% 100 ML IV SCH ×2 (09:29→20:34)
[2022-05-27] MEDS: LACTOBACILLUS GG CAPSULE PO SCH (09:29)
[2022-05-27] MEDS: PANTOPRAZOLE SODIUM 40 MG/VIAL IV SCH (09:30)
[2022-05-27] MEDS: AMIODARONE HCL 200 MG TABLET PO SCH ×2 (09:30→20:35)
[2022-05-27] MEDS: DOCUSATE SODIUM 100MG CAPSULE PO SCH ×2 (09:30→17:00)
[2022-05-27] MEDS: MULTIVITAMINS,THER W-MINERALS TABLET PO SCH (09:30)
[2022-05-27] MEDS: FERROUS SULFATE 325MG TABLET PO SCH ×2 (09:30→17:00)
[2022-05-27] MEDS: GUAIFENESIN 600MG ER TABLET PO SCH ×2 (09:30→20:36)
[2022-05-27] MEDS: FUROSEMIDE 20MG/2ML VIAL IVP SCH (09:30)
[2022-05-27] MEDS: DEXT 5%/0.45% NACL 1000ML 1,000 ML IV SCH (09:36)
[2022-05-27] MEDS: INSULIN GLARGINE 100 UNITS/ML SUBCUT SCH (09:38)
[2022-05-27 09:40] LABS: PLATELET ESTIMATE INCREASED
[2022-05-27] MEDS: HYDROCODONE/ACETAMINOPHEN 5/325MG TABLET PO PRN ×2 (10:36→20:34)
[2022-05-27 12:00] VITALS: BP 143/81
[2022-05-27] MEDS ORDERED: INSULIN GLARGINE 100 UNITS/ML SUBCUT SCH (14:30)
[2022-05-27 16:00] VITALS: BP 131/70
[2022-05-27] MEDS: MONTELUKAST SODIUM 10MG TABLET PO SCH (17:00)
[2022-05-27 20:00] VITALS: BP 141/78
[2022-05-27] MEDS: MIRTAZAPINE 15MG TABLET PO SCH (20:35)
[2022-05-27] MEDS: ENOXAPARIN 30MG/0.3ML SYR SUBCUT SCH (20:36)
[2022-05-28] VITALS: BP_SYST 141; BP_SYST 146; BP_DIAS 77
[2022-05-28] MEDS: HYDROCODONE/ACETAMINOPHEN 5/325MG TABLET PO PRN ×2 (00:48→18:26)
[2022-05-28 04:00] VITALS: BP 144/78
[2022-05-28] MEDS: BLOOD SUGAR DIAGNOSTIC STRIP TEST SCH ×4 (05:16→21:55)
[2022-05-28] MEDS: VANCOMYCIN 1000MG/20ML ORAL SOLN PO SCH ×3 (05:26→18:27)
[2022-05-28] MEDS: INSULIN LISPRO 100 UNITS/ML SUBCUT SCH ×4 (05:26→21:56)
[2022-05-28] MEDS: ALBUTEROL 6.7GM HFA INHALER ORI SCH ×3 (05:35→18:27)
[2022-05-28 06:32] LABS: BASOPHILS % 0.1 % (0.0-2.0); HEMOGLOBIN. 8.4 g/dL (12.0-16.0); LYMPHOCYTES % 8.6 % (20.0-50.0); MEAN CORPUSCULAR HEMOGLOBIN 23.2 pg (28.0-32.0); MEAN CORPUSCULAR VOLUME 71.8 fL (81.0-99.0); MEAN PLATELET VOLUME 7.3 fl (7.4-10.4); MONOCYTES % 3.4 % (2.0-8.0); NEUTROPHILS % 87.9 % (40.0-76.0); PLATELET 332 x1000/uL (130-400); RED BLOOD CELL COUNT 3.63 mill/uL (4.2-5.4); RED CELL DISTRIBUTION WIDTH 18.6 % (11.6-14.6)
[2022-05-28 08:00] VITALS: BP 138/75
[2022-05-28 08:45] LABS: CHLORIDE 110 mEq/L (98-107)
[2022-05-28] MEDS: PANTOPRAZOLE SODIUM 40 MG/VIAL IV SCH (09:23)
[2022-05-28] MEDS: MEROPENEM 1,000 MG in SODIUM CHLORIDE 0.9% 100 ML IV SCH ×2 (09:23→21:54)
[2022-05-28] MEDS: METOPROLOL TARTRATE 50MG TABLET PO SCH ×2 (09:24→21:54)
[2022-05-28] MEDS: GUAIFENESIN 600MG ER TABLET PO SCH ×2 (09:24→21:54)
[2022-05-28] MEDS: FERROUS SULFATE 325MG TABLET PO SCH ×2 (09:24→18:21)
[2022-05-28] MEDS: DEXAMETHASONE 6MG TABLET PO SCH (09:24)
[2022-05-28] MEDS: LACTOBACILLUS GG CAPSULE PO SCH (09:25)
[2022-05-28] MEDS: MULTIVITAMINS,THER W-MINERALS TABLET PO SCH (09:31)
[2022-05-28] MEDS: FUROSEMIDE 20MG/2ML VIAL IVP SCH (09:31)
[2022-05-28] MEDS: DOCUSATE SODIUM 100MG CAPSULE PO SCH ×2 (09:31→17:00)
[2022-05-28] MEDS: AMIODARONE HCL 200 MG TABLET PO SCH ×2 (09:31→21:54)
[2022-05-28] MEDS: DEXT 5%/0.45% NACL 1000ML 1,000 ML IV SCH (09:31)
[2022-05-28 12:00] VITALS: BP 151/81
[2022-05-28 16:00] VITALS: BP 129/82
[2022-05-28] MEDS: MONTELUKAST SODIUM 10MG TABLET PO SCH (18:21)
[2022-05-28 20:00] VITALS: BP 133/77
[2022-05-28] MEDS ORDERED: INSULIN GLARGINE 100 UNITS/ML SUBCUT SCH (21:00)
[2022-05-28] MEDS: INSULIN GLARGINE 100 UNITS/ML SUBCUT SCH (21:55)
[2022-05-28] MEDS: MIRTAZAPINE 15MG TABLET PO SCH (21:55)
[2022-05-28] MEDS: ENOXAPARIN 30MG/0.3ML SYR SUBCUT SCH (21:55)
[2022-05-29] VITALS: BP 139/79
[2022-05-29] MEDS: VANCOMYCIN 1000MG/20ML ORAL SOLN PO SCH ×4 (00:03→18:32)
[2022-05-29 04:00] VITALS: BP 129/72
[2022-05-29] MEDS: BLOOD SUGAR DIAGNOSTIC STRIP TEST SCH ×4 (05:26→20:32)
[2022-05-29] MEDS: ALBUTEROL 6.7GM HFA INHALER ORI SCH ×4 (05:26→18:33)
[2022-05-29] MEDS: INSULIN LISPRO 100 UNITS/ML SUBCUT SCH ×4 (05:26→20:33)
[2022-05-29 05:28] LABS: CHLORIDE 111 mEq/L (98-107)
[2022-05-29] MEDS: HYDROCODONE/ACETAMINOPHEN 5/325MG TABLET PO PRN ×2 (05:28→18:30)
[2022-05-29 06:14] LABS: HEMATOCRIT. 26.3 % (36.0-48.0); HEMOGLOBIN. 8.4 g/dL (12.0-16.0); LYMPHOCYTES % 8.9 % (20.0-50.0); MEAN PLATELET VOLUME 7.5 fl (7.4-10.4); MONOCYTES % 3.8 % (2.0-8.0); NEUTROPHILS % 87.3 % (40.0-76.0); PLATELET 381 x1000/uL (130-400); RED BLOOD CELL COUNT 3.66 mill/uL (4.2-5.4); RED CELL DISTRIBUTION WIDTH 18.4 % (11.6-14.6)
[2022-05-29 08:00] VITALS: BP 142/78
[2022-05-29] MEDS: MEROPENEM 1,000 MG in SODIUM CHLORIDE 0.9% 100 ML IV SCH ×2 (08:56→20:32)
[2022-05-29] MEDS: PANTOPRAZOLE SODIUM 40 MG/VIAL IV SCH (08:57)
[2022-05-29] MEDS: MULTIVITAMINS,THER W-MINERALS TABLET PO SCH (08:57)
[2022-05-29] MEDS: FUROSEMIDE 20MG/2ML VIAL IVP SCH (08:57)
[2022-05-29] MEDS: GUAIFENESIN 600MG ER TABLET PO SCH ×2 (08:57→20:32)
[2022-05-29] MEDS: AMIODARONE HCL 200 MG TABLET PO SCH ×2 (08:57→20:31)
[2022-05-29] MEDS: FERROUS SULFATE 325MG TABLET PO SCH ×2 (08:57→18:31)
[2022-05-29] MEDS: METOPROLOL TARTRATE 50MG TABLET PO SCH ×2 (08:58→20:31)
[2022-05-29] MEDS: LACTOBACILLUS GG CAPSULE PO SCH (09:00)
[2022-05-29] MEDS: DOCUSATE SODIUM 100MG CAPSULE PO SCH ×2 (09:00→17:00)
[2022-05-29] MEDS: DEXAMETHASONE 6MG TABLET PO SCH (09:01)
[2022-05-29] MEDS ORDERED: MAGNESIUM 1 G PREMIX 100 ML IV ONE ×2 (09:30→10:30)
[2022-05-29] MEDS ORDERED: MAGNESIUM 1 G PREMIX 100 ML IV NR (10:30)
[2022-05-29] MEDS: DEXT 5%/0.45% NACL 1000ML 1,000 ML IV SCH (11:00)
[2022-05-29 12:00] VITALS: BP 138/69
[2022-05-29 16:00] VITALS: BP 151/77
[2022-05-29] MEDS: MONTELUKAST SODIUM 10MG TABLET PO SCH (18:30)
[2022-05-29 20:00] VITALS: BP 144/79
[2022-05-29] MEDS: ENOXAPARIN 30MG/0.3ML SYR SUBCUT SCH (20:31)
[2022-05-29] MEDS: MIRTAZAPINE 15MG TABLET PO SCH (20:31)
[2022-05-29] MEDS: INSULIN GLARGINE 100 UNITS/ML SUBCUT SCH (20:32)
[2022-05-30] VITALS: BP 134/76
[2022-05-30 04:00] VITALS: BP 155/80
[2022-05-30] MEDS: INSULIN LISPRO 100 UNITS/ML SUBCUT SCH ×4 (05:46→20:43)
[2022-05-30] MEDS: BLOOD SUGAR DIAGNOSTIC STRIP TEST SCH ×4 (05:46→20:45)
[2022-05-30] MEDS: ALBUTEROL 6.7GM HFA INHALER ORI SCH ×2 (05:46)
[2022-05-30 06:29] LABS: CHLORIDE 111 mEq/L (98-107)
[2022-05-30 06:56] LABS: BASOPHILS % 0.1 % (0.0-2.0); HEMATOCRIT. 34.8 % (36.0-48.0); HEMOGLOBIN. 10.4 g/dL (12.0-16.0); LYMPHOCYTES % 12.5 % (20.0-50.0); MEAN CORPUSCULAR HEMOGLOBIN 22.9 pg (28.0-32.0); MEAN CORPUSCULAR VOLUME 76.6 fL (81.0-99.0); MEAN PLATELET VOLUME 7.1 fl (7.4-10.4); NEUTROPHILS % 82.4 % (40.0-76.0); PLATELET 463 x1000/uL (130-400); RED BLOOD CELL COUNT 4.55 mill/uL (4.2-5.4); RED CELL DISTRIBUTION WIDTH 19.1 % (11.6-14.6)
[2022-05-30 08:00] VITALS: BP 149/87
[2022-05-30] MEDS: DEXAMETHASONE 6MG TABLET PO SCH (08:40)
[2022-05-30] MEDS: LACTOBACILLUS GG CAPSULE PO SCH (08:40)
[2022-05-30] MEDS: GUAIFENESIN 600MG ER TABLET PO SCH ×2 (08:40→20:44)
[2022-05-30] MEDS: DOCUSATE SODIUM 100MG CAPSULE PO SCH ×2 (08:40→17:00)
[2022-05-30] MEDS: MULTIVITAMINS,THER W-MINERALS TABLET PO SCH (08:40)
[2022-05-30] MEDS: FUROSEMIDE 20MG/2ML VIAL IVP SCH (08:40)
[2022-05-30] MEDS: PANTOPRAZOLE SODIUM 40 MG/VIAL IV SCH (08:40)
[2022-05-30] MEDS: AMIODARONE HCL 200 MG TABLET PO SCH ×2 (08:40→20:44)
[2022-05-30] MEDS: METOPROLOL TARTRATE 50MG TABLET PO SCH ×2 (08:40→20:45)
[2022-05-30] MEDS: FERROUS SULFATE 325MG TABLET PO SCH ×2 (08:40→18:06)
[2022-05-30] MEDS: MEROPENEM 1,000 MG in SODIUM CHLORIDE 0.9% 100 ML IV SCH ×2 (08:43→20:43)
[2022-05-30] MEDS: DEXT 5%/0.45% NACL 1000ML 1,000 ML IV SCH (10:02)
[2022-05-30 12:05] VITALS: BP 144/78
[2022-05-30 16:00] VITALS: BP 146/88
[2022-05-30] MEDS: MONTELUKAST SODIUM 10MG TABLET PO SCH (18:08)
[2022-05-30] MEDS: INSULIN GLARGINE 100 UNITS/ML SUBCUT SCH (20:44)
[2022-05-30] MEDS: ENOXAPARIN 40MG/0.4ML SYR SUBCUT SCH (20:45)
[2022-05-30] MEDS: MIRTAZAPINE 15MG TABLET PO SCH (20:45)
[2022-05-31] VITALS: BP 138/70
[2022-05-31 04:00] VITALS: BP 151/80
[2022-05-31] MEDS: INSULIN LISPRO 100 UNITS/ML SUBCUT SCH ×4 (05:41→23:45)
[2022-05-31] MEDS: ALBUTEROL 6.7GM HFA INHALER ORI SCH ×2 (05:42)
[2022-05-31] MEDS: BLOOD SUGAR DIAGNOSTIC STRIP TEST SCH ×4 (05:42→21:00)
[2022-05-31 07:58] VITALS: BP 114/85
[2022-05-31] MEDS: DEXAMETHASONE 6MG TABLET PO SCH (08:08)
[2022-05-31] MEDS: FERROUS SULFATE 325MG TABLET PO SCH ×2 (08:08→17:52)
[2022-05-31] MEDS: AMIODARONE HCL 200 MG TABLET PO SCH ×2 (08:08→23:43)
[2022-05-31] MEDS: MEROPENEM 1,000 MG in SODIUM CHLORIDE 0.9% 100 ML IV SCH ×2 (08:08→23:39)
[2022-05-31] MEDS: LACTOBACILLUS GG CAPSULE PO SCH (08:08)
[2022-05-31] MEDS: GUAIFENESIN 600MG ER TABLET PO SCH ×2 (08:09→23:41)
[2022-05-31] MEDS: METOPROLOL TARTRATE 50MG TABLET PO SCH ×2 (08:09→23:42)
[2022-05-31] MEDS: MULTIVITAMINS,THER W-MINERALS TABLET PO SCH (08:09)
[2022-05-31] MEDS: DOCUSATE SODIUM 100MG CAPSULE PO SCH ×2 (08:09→17:00)
[2022-05-31] MEDS: FUROSEMIDE 20MG/2ML VIAL IVP SCH (08:10)
[2022-05-31] MEDS: PANTOPRAZOLE SODIUM 40 MG/VIAL IV SCH (08:10)
[2022-05-31 08:25] LABS: CHLORIDE 105 mEq/L (98-107)
[2022-05-31] MEDS: ACETAMINOPHEN 325MG TABLET PO PRN (11:15)
[2022-05-31 12:00] VITALS: BP 104/73
[2022-05-31] MEDS: DEXT 5%/0.45% NACL 1000ML 1,000 ML IV SCH (13:47)
[2022-05-31 16:00] VITALS: BP 144/78
[2022-05-31] MEDS: MONTELUKAST SODIUM 10MG TABLET PO SCH (17:52)
[2022-05-31] MEDS: HYDROCODONE/ACETAMINOPHEN 5/325MG TABLET PO PRN (17:52)
[2022-05-31 18:11] LABS: HEMATOCRIT. 31.6 % (36.0-48.0); HEMOGLOBIN. 10.1 g/dL (12.0-16.0); LYMPHOCYTES % 10.8 % (20.0-50.0); MEAN CORPUSCULAR HEMOGLOBIN 23.2 pg (28.0-32.0); MEAN PLATELET VOLUME 7.3 fl (7.4-10.4); MONOCYTES % 2.8 % (2.0-8.0); NEUTROPHILS % 86.4 % (40.0-76.0); PLATELET 464 x1000/uL (130-400); RED BLOOD CELL COUNT 4.34 mill/uL (4.2-5.4); RED CELL DISTRIBUTION WIDTH 18.3 % (11.6-14.6)
[2022-05-31 20:00] VITALS: BP 116/74
[2022-05-31] MEDS: MIRTAZAPINE 15MG TABLET PO SCH (23:41)
[2022-05-31] MEDS: ENOXAPARIN 40MG/0.4ML SYR SUBCUT SCH (23:41)
[2022-05-31] MEDS: INSULIN GLARGINE 100 UNITS/ML SUBCUT SCH (23:47)
[2022-06-01] VITALS: BP 146/85
[2022-06-01 04:00] VITALS: BP 142/70
[2022-06-01 06:07] LABS: CHLORIDE 110 mEq/L (98-107)
[2022-06-01 06:38] LABS: BASOPHILS % 0.2 % (0.0-2.0); HEMATOCRIT. 30.6 % (36.0-48.0); HEMOGLOBIN. 9.9 g/dL (12.0-16.0); LYMPHOCYTES % 15.4 % (20.0-50.0); MEAN CORPUSCULAR HEMOGLOBIN 23.4 pg (28.0-32.0); MEAN CORPUSCULAR VOLUME 72.4 fL (81.0-99.0); MEAN PLATELET VOLUME 7.3 fl (7.4-10.4); MONOCYTES % 6.2 % (2.0-8.0); NEUTROPHILS % 78.2 % (40.0-76.0); PLATELET 469 x1000/uL (130-400); RED BLOOD CELL COUNT 4.22 mill/uL (4.2-5.4); RED CELL DISTRIBUTION WIDTH 18.5 % (11.6-14.6)
[2022-06-01] MEDS: BLOOD SUGAR DIAGNOSTIC STRIP TEST SCH ×4 (07:00→21:50)
[2022-06-01] MEDS: INSULIN LISPRO 100 UNITS/ML SUBCUT SCH ×4 (07:00→22:23)
[2022-06-01 08:00] VITALS: BP 161/83
[2022-06-01] MEDS: MEROPENEM 1,000 MG in SODIUM CHLORIDE 0.9% 100 ML IV SCH ×3 (08:28→21:47)
[2022-06-01] MEDS: METOPROLOL TARTRATE 50MG TABLET PO SCH ×3 (08:29→21:49)
[2022-06-01] MEDS: FUROSEMIDE 20MG/2ML VIAL IVP SCH ×2 (08:29→09:52)
[2022-06-01] MEDS: DOCUSATE SODIUM 100MG CAPSULE PO SCH ×3 (08:29→16:48)
[2022-06-01] MEDS: GUAIFENESIN 600MG ER TABLET PO SCH ×3 (08:29→21:48)
[2022-06-01] MEDS: PANTOPRAZOLE SODIUM 40 MG/VIAL IV SCH (08:29)
[2022-06-01] MEDS: AMIODARONE HCL 200 MG TABLET PO SCH ×3 (08:29→21:50)
[2022-06-01] MEDS: LACTOBACILLUS GG CAPSULE PO SCH ×2 (08:29→09:53)
[2022-06-01] MEDS: FERROUS SULFATE 325MG TABLET PO SCH ×3 (08:29→18:15)
[2022-06-01] MEDS: MULTIVITAMINS,THER W-MINERALS TABLET PO SCH ×2 (08:30→09:52)
[2022-06-01] MEDS: DEXT 5%/0.45% NACL 1000ML 1,000 ML IV SCH (10:12)
[2022-06-01 12:00] VITALS: BP 137/79
[2022-06-01] MEDS: HYDROCODONE/ACETAMINOPHEN 5/325MG TABLET PO PRN (13:38)
[2022-06-01] MEDS: ALBUTEROL 6.7GM HFA INHALER ORI SCH ×2 (13:38→18:16)
[2022-06-01] MEDS ORDERED: MAGNESIUM/ALUMINUM HYDROXIDE/SIMETHICONE 30ML UDC PO PRN (14:15)
[2022-06-01 16:00] VITALS: BP 137/75
[2022-06-01] MEDS: MONTELUKAST SODIUM 10MG TABLET PO SCH (18:15)
[2022-06-01] MEDS: FAMOTIDINE 20MG TABLET PO SCH (21:48)
[2022-06-01] MEDS: ENOXAPARIN 40MG/0.4ML SYR SUBCUT SCH (21:48)
[2022-06-01] MEDS: INSULIN GLARGINE 100 UNITS/ML SUBCUT SCH (21:52)
[2022-06-01] MEDS: MIRTAZAPINE 15MG TABLET PO SCH (21:55)
[2022-06-02] VITALS: BP 130/75
[2022-06-02] MEDS: ALBUTEROL 6.7GM HFA INHALER ORI SCH ×3 (00:36→17:22)
[2022-06-02 04:00] VITALS: BP 141/72
[2022-06-02] MEDS: DEXTROSE 50% WATER 50ML SYRINGE IV PRN ×2 (06:16→21:52)
[2022-06-02] MEDS: BLOOD SUGAR DIAGNOSTIC STRIP TEST SCH ×4 (07:42→21:00)
[2022-06-02] MEDS: INSULIN LISPRO 100 UNITS/ML SUBCUT SCH ×4 (07:42→21:00)
[2022-06-02 08:00] VITALS: BP 123/57
[2022-06-02] MEDS: MEROPENEM 1,000 MG in SODIUM CHLORIDE 0.9% 100 ML IV SCH ×2 (08:39→22:38)
[2022-06-02] MEDS: LACTOBACILLUS GG CAPSULE PO SCH (08:39)
[2022-06-02] MEDS: FERROUS SULFATE 325MG TABLET PO SCH ×2 (08:40→17:21)
[2022-06-02] MEDS: DOCUSATE SODIUM 100MG CAPSULE PO SCH ×2 (08:40→17:00)
[2022-06-02] MEDS: MULTIVITAMINS,THER W-MINERALS TABLET PO SCH (08:40)
[2022-06-02] MEDS: AMIODARONE HCL 200 MG TABLET PO SCH ×2 (08:40→21:53)
[2022-06-02] MEDS: METOPROLOL TARTRATE 50MG TABLET PO SCH ×2 (08:41→21:54)
[2022-06-02] MEDS: GUAIFENESIN 600MG ER TABLET PO SCH ×2 (08:42→21:53)
[2022-06-02] MEDS: FUROSEMIDE 20MG/2ML VIAL IVP SCH (08:42)
[2022-06-02] MEDS: DEXT 5%/0.45% NACL 1000ML 1,000 ML IV SCH (09:16)
[2022-06-02 12:00] VITALS: BP 142/70
[2022-06-02 16:00] VITALS: BP 133/64
[2022-06-02] MEDS: MONTELUKAST SODIUM 10MG TABLET PO SCH (17:21)
[2022-06-02 20:00] VITALS: BP 134/75
[2022-06-02] MEDS: FAMOTIDINE 20MG TABLET PO SCH (21:53)
[2022-06-02] MEDS: ENOXAPARIN 40MG/0.4ML SYR SUBCUT SCH (21:53)
[2022-06-02] MEDS: MIRTAZAPINE 15MG TABLET PO SCH (21:53)
[2022-06-02] MEDS: INSULIN GLARGINE 100 UNITS/ML SUBCUT SCH (22:00)
[2022-06-03] VITALS: BP 144/70
[2022-06-03] MEDS: ALBUTEROL 6.7GM HFA INHALER ORI SCH ×4 (00:26→17:15)
[2022-06-03] MEDS: DEXTROSE 50% WATER 50ML SYRINGE IV PRN (00:26)
[2022-06-03] MEDS ORDERED: HYDROCODONE/ACETAMINOPHEN 5/325MG TABLET PO PRN (01:00)
[2022-06-03] MEDS: DEXT 10% WATER 1,000 ML IV SCH ×2 (02:12→20:52)
[2022-06-03 04:00] VITALS: BP 135/78
[2022-06-03 06:40] LABS: EOSINOPHILS % 0.2 % (0.0-5.0); HEMATOCRIT. 29.2 % (36.0-48.0); HEMOGLOBIN. 9.3 g/dL (12.0-16.0); LYMPHOCYTES % 14.9 % (20.0-50.0); MEAN CORPUSCULAR HEMOGLOBIN 23.2 pg (28.0-32.0); MEAN PLATELET VOLUME 7.2 fl (7.4-10.4); MONOCYTES % 9.1 % (2.0-8.0); NEUTROPHILS % 75.8 % (40.0-76.0); PLATELET 406 x1000/uL (130-400); RED CELL DISTRIBUTION WIDTH 18.1 % (11.6-14.6)
[2022-06-03 06:56] LABS: CHLORIDE 106 mEq/L (98-107)
[2022-06-03] MEDS: BLOOD SUGAR DIAGNOSTIC STRIP TEST SCH ×4 (07:40→20:48)
[2022-06-03 08:00] VITALS: BP 132/76
[2022-06-03] MEDS: INSULIN LISPRO 100 UNITS/ML SUBCUT SCH ×4 (08:10→20:47)
[2022-06-03] MEDS: DOCUSATE SODIUM 100MG CAPSULE PO SCH ×2 (09:17→16:06)
[2022-06-03] MEDS: MEROPENEM 1,000 MG in SODIUM CHLORIDE 0.9% 100 ML IV SCH ×2 (09:17→20:48)
[2022-06-03] MEDS: GUAIFENESIN 600MG ER TABLET PO SCH ×2 (09:18→20:52)
[2022-06-03] MEDS: MULTIVITAMINS,THER W-MINERALS TABLET PO SCH (09:18)
[2022-06-03] MEDS: LACTOBACILLUS GG CAPSULE PO SCH (09:18)
[2022-06-03] MEDS: METOPROLOL TARTRATE 50MG TABLET PO SCH ×2 (09:18→20:47)
[2022-06-03] MEDS: AMIODARONE HCL 200 MG TABLET PO SCH ×2 (09:18→20:47)
[2022-06-03] MEDS: FERROUS SULFATE 325MG TABLET PO SCH ×2 (09:19→16:53)
[2022-06-03] MEDS: FUROSEMIDE 20MG/2ML VIAL IVP SCH (09:19)
[2022-06-03] MEDS: DEXT 5%/0.45% NACL 1000ML 1,000 ML IV SCH (09:36)
[2022-06-03 12:00] VITALS: BP 151/79
[2022-06-03 16:00] VITALS: BP 132/72
[2022-06-03] MEDS: MONTELUKAST SODIUM 10MG TABLET PO SCH (16:53)
[2022-06-03 20:00] VITALS: BP 129/69
[2022-06-03] MEDS: MIRTAZAPINE 15MG TABLET PO SCH (20:47)
[2022-06-03] MEDS: FAMOTIDINE 20MG TABLET PO SCH (20:47)
[2022-06-03] MEDS: ENOXAPARIN 40MG/0.4ML SYR SUBCUT SCH (20:48)
[2022-06-03] MEDS: INSULIN GLARGINE 100 UNITS/ML SUBCUT SCH (20:50)
[2022-06-04] VITALS: BP 119/53
[2022-06-04 04:00] VITALS: BP 121/70
[2022-06-04] MEDS: INSULIN LISPRO 100 UNITS/ML SUBCUT SCH ×4 (05:10→20:26)
[2022-06-04] MEDS: BLOOD SUGAR DIAGNOSTIC STRIP TEST SCH ×4 (05:10→20:26)
[2022-06-04] MEDS: ALBUTEROL 6.7GM HFA INHALER ORI SCH ×4 (05:11→18:22)
[2022-06-04] MEDS: DEXTROSE 50% WATER 50ML SYRINGE IV PRN ×3 (05:11→20:27)
[2022-06-04 05:33] LABS: BASOPHILS % 0.2 % (0.0-2.0); EOSINOPHILS % 0.5 % (0.0-5.0); HEMATOCRIT. 23.9 % (36.0-48.0); HEMOGLOBIN. 7.7 g/dL (12.0-16.0); LYMPHOCYTES % 19.4 % (20.0-50.0); MEAN CORPUSCULAR HEMOGLOBIN 23.9 pg (28.0-32.0); MEAN CORPUSCULAR VOLUME 73.8 fL (81.0-99.0); MEAN PLATELET VOLUME 7.6 fl (7.4-10.4); MONOCYTES % 10.1 % (2.0-8.0); NEUTROPHILS % 69.8 % (40.0-76.0); PLATELET 310 x1000/uL (130-400); RED BLOOD CELL COUNT 3.23 mill/uL (4.2-5.4); RED CELL DISTRIBUTION WIDTH 18.2 % (11.6-14.6)
[2022-06-04 05:36] LABS: CHLORIDE 111 mEq/L (98-107)
[2022-06-04 08:00] VITALS: BP 125/93
[2022-06-04] MEDS ORDERED: POTASSIUM CHLORIDE 20MEQ TABLET SR PO NR (08:30)
[2022-06-04] MEDS: DOCUSATE SODIUM 100MG CAPSULE PO SCH ×2 (08:46→16:35)
[2022-06-04] MEDS: FUROSEMIDE 20MG/2ML VIAL IVP SCH (09:00)
[2022-06-04] MEDS: DIPHENOXYLATE/ATROPINE 2.5/0.025MG TABLET PO PRN (09:22)
[2022-06-04] MEDS: MULTIVITAMINS,THER W-MINERALS TABLET PO SCH (09:22)
[2022-06-04] MEDS: AMIODARONE HCL 200 MG TABLET PO SCH ×2 (09:22→20:26)
[2022-06-04] MEDS: LACTOBACILLUS GG CAPSULE PO SCH (09:23)
[2022-06-04] MEDS: METOPROLOL TARTRATE 50MG TABLET PO SCH ×2 (09:24→20:26)
[2022-06-04] MEDS: FERROUS SULFATE 325MG TABLET PO SCH ×2 (09:24→18:22)
[2022-06-04] MEDS: GUAIFENESIN 600MG ER TABLET PO SCH ×2 (09:25→20:26)
[2022-06-04] MEDS ORDERED: POTASSIUM CHLORIDE 8 MEQ TABLET.SA PO ONE (09:30)
[2022-06-04] MEDS ORDERED: HYDROMORPHONE HCL/PF 2MG/ML CPJ IV PRN (10:00)
[2022-06-04 12:00] VITALS: BP 128/66
[2022-06-04 12:53] LABS: HEMATOCRIT 29.3 % (36.0-48.0); HEMOGLOBIN 9.7 g/dL (12.0-16.0)
[2022-06-04 16:00] VITALS: BP 136/64
[2022-06-04] MEDS: MONTELUKAST SODIUM 10MG TABLET PO SCH (18:21)
[2022-06-04] MEDS: DEXT 10% WATER 1,000 ML IV SCH (18:22)
[2022-06-04 20:00] VITALS: BP 113/72
[2022-06-04] MEDS: INSULIN GLARGINE 100 UNITS/ML SUBCUT SCH (20:26)
[2022-06-04] MEDS: MIRTAZAPINE 15MG TABLET PO SCH (20:26)
[2022-06-04] MEDS: FAMOTIDINE 20MG TABLET PO SCH (20:26)
[2022-06-04] MEDS ORDERED: MIRTAZAPINE 15MG TABLET PO SCH (22:15)
[2022-06-05] VITALS: BP 121/64
[2022-06-05 04:00] VITALS: BP 132/73
[2022-06-05] MEDS: BLOOD SUGAR DIAGNOSTIC STRIP TEST SCH ×4 (05:53→20:37)
[2022-06-05] MEDS: ALBUTEROL 6.7GM HFA INHALER ORI SCH ×4 (05:53→18:51)
[2022-06-05] MEDS: INSULIN LISPRO 100 UNITS/ML SUBCUT SCH ×4 (05:53→20:37)
[2022-06-05 06:41] LABS: HEMATOCRIT. 25.2 % (36.0-48.0); HEMOGLOBIN. 8.3 g/dL (12.0-16.0); MEAN CORPUSCULAR HEMOGLOBIN 24.2 pg (28.0-32.0); MEAN CORPUSCULAR VOLUME 73.4 fL (81.0-99.0); MEAN PLATELET VOLUME 7.5 fl (7.4-10.4); PLATELET 337 x1000/uL (130-400); RED BLOOD CELL COUNT 3.44 mill/uL (4.2-5.4); RED CELL DISTRIBUTION WIDTH 18.1 % (11.6-14.6)
[2022-06-05 06:54] LABS: CHLORIDE 105 mEq/L (98-107)
[2022-06-05 08:00] VITALS: BP 132/76
[2022-06-05 08:38] LABS: PLATELET ESTIMATE NORMAL
[2022-06-05] MEDS: DOCUSATE SODIUM 100MG CAPSULE PO SCH ×2 (09:00→17:00)
[2022-06-05] MEDS: LACTOBACILLUS GG CAPSULE PO SCH (10:24)
[2022-06-05] MEDS: AMIODARONE HCL 200 MG TABLET PO SCH ×2 (10:24→20:36)
[2022-06-05] MEDS: METOPROLOL TARTRATE 50MG TABLET PO SCH ×2 (10:25→20:36)
[2022-06-05] MEDS: GUAIFENESIN 600MG ER TABLET PO SCH ×2 (10:25→20:36)
[2022-06-05] MEDS: MULTIVITAMINS,THER W-MINERALS TABLET PO SCH (10:25)
[2022-06-05] MEDS: FUROSEMIDE 20MG/2ML VIAL IVP SCH (10:26)
[2022-06-05 12:00] VITALS: BP 110/61
[2022-06-05] MEDS: FERROUS SULFATE 300MG/5ML UDC PO SCH ×3 (13:10→18:52)
[2022-06-05] MEDS: DEXT 10% WATER 1,000 ML IV SCH (13:52)
[2022-06-05] MEDS: HYDROMORPHONE HCL/PF 2MG/ML CPJ IV PRN (14:09)
[2022-06-05 16:00] VITALS: BP 105/66
[2022-06-05] MEDS: MONTELUKAST SODIUM 10MG TABLET PO SCH (16:58)
[2022-06-05] MEDS ORDERED: DEXT 5%/0.45% NACL 1000ML 1,000 ML IV SCH (19:30)
[2022-06-05 20:00] VITALS: BP 105/59
[2022-06-05] MEDS: FAMOTIDINE 20MG TABLET PO SCH (20:36)
[2022-06-05] MEDS ORDERED: MIRTAZAPINE 15MG TABLET PO SCH (21:00)
[2022-06-06] VITALS: BP 109/64
[2022-06-06 04:00] VITALS: BP 103/66
[2022-06-06] MEDS: ALBUTEROL 6.7GM HFA INHALER ORI SCH ×2 (05:56)
[2022-06-06] MEDS: BLOOD SUGAR DIAGNOSTIC STRIP TEST SCH (05:56)
[2022-06-06] MEDS: INSULIN LISPRO 100 UNITS/ML SUBCUT SCH (05:57)
[2022-06-06 06:38] LABS: HEMATOCRIT. 25.5 % (36.0-48.0); HEMOGLOBIN. 8.2 g/dL (12.0-16.0); MEAN CORPUSCULAR HEMOGLOBIN 23.5 pg (28.0-32.0); MEAN CORPUSCULAR VOLUME 73.3 fL (81.0-99.0); MEAN PLATELET VOLUME 7.7 fl (7.4-10.4); PLATELET 359 x1000/uL (130-400); RED BLOOD CELL COUNT 3.48 mill/uL (4.2-5.4); RED CELL DISTRIBUTION WIDTH 17.8 % (11.6-14.6)
[2022-06-06 07:57] LABS: CHLORIDE 104 mEq/L (98-107)
[2022-06-06 08:00] VITALS: BP 122/66
[2022-06-06] MEDS: FERROUS SULFATE 300MG/5ML UDC PO SCH ×2 (08:10→09:53)
[2022-06-06] MEDS: METOPROLOL TARTRATE 50MG TABLET PO SCH ×2 (09:00→09:54)
[2022-06-06] MEDS: DOCUSATE SODIUM 100MG CAPSULE PO SCH ×2 (09:00→09:53)
[2022-06-06] MEDS: LACTOBACILLUS GG CAPSULE PO SCH ×2 (09:00→09:53)
[2022-06-06] MEDS: FUROSEMIDE 20MG/2ML VIAL IVP SCH ×2 (09:00→09:54)
[2022-06-06] MEDS: GUAIFENESIN 600MG ER TABLET PO SCH (09:53)
[2022-06-06] MEDS: AMIODARONE HCL 200 MG TABLET PO SCH (09:53)
[2022-06-06] MEDS: MULTIVITAMINS,THER W-MINERALS TABLET PO SCH (09:54)
[2022-06-06] MEDS: HYDROMORPHONE HCL/PF 2MG/ML CPJ IV PRN (17:06)
[2022-06-06 17:23] LABS: PLATELET ESTIMATE NORMAL
[2022-06-06 17:50] VITALS: BP 110/60
== END 2022-06-06 20:10 | disposition hospice, inpatient (51) | DRG 871 ==
LOC: ER 10:45 → EDBEDREQ 12:59 → 6WST 15:24 → EDBEDREQTM 15:25 → EDBEDREQ 15:25 → ENRESERV 17:00 → 6WST 17:55 → 5EST 05-15 10:16 → 7WST 05-22 18:19
PROVIDERS: ADMIT Internal Medicine Geriatric Medicine; ATTEND Internal Medicine Geriatric Medicine
PROC: 02HV33Z Insertion of Infusion Device into Superior Vena Cava, Percutaneous Approach (ICD-10-PCS; principal; 2022-05-17)
PROC: B548ZZA Ultrasonography of Superior Vena Cava, Guidance (ICD-10-PCS; 2022-05-17)
DX: A41.89 Other specified sepsis (principal); E43 Unspecified severe protein-calorie malnutrition; U07.1 COVID-19; J12.82 Pneumonia due to coronavirus disease 2019; J96.00 Acute respiratory failure, unspecified whether with hypoxia or hypercapnia; J18.9 Pneumonia, unspecified organism; N17.9 Acute kidney failure, unspecified; N39.0 Urinary tract infection, site not specified; E22.2 Syndrome of inappropriate secretion of antidiuretic hormone; G93.40 Encephalopathy, unspecified; J98.11 Atelectasis; I82.621 Acute embolism and thrombosis of deep veins of right upper extremity; I10 Essential (primary) hypertension; K44.9 Diaphragmatic hernia without obstruction or gangrene; D50.9 Iron deficiency anemia, unspecified; T38.0X5A Adverse effect of glucocorticoids and synthetic analogues, initial encounter; D63.8 Anemia in other chronic diseases classified elsewhere; E11.649 Type 2 diabetes mellitus with hypoglycemia without coma; E11.65 Type 2 diabetes mellitus with hyperglycemia; E78.00 Pure hypercholesterolemia, unspecified; E83.42 Hypomagnesemia; E87.6 Hypokalemia; G89.29 Other chronic pain; I27.20 Pulmonary hypertension, unspecified; J20.8 Acute bronchitis due to other specified organisms; K56.41 Fecal impaction; K57.90 Diverticulosis of intestine, part unspecified, without perforation or abscess without bleeding; R62.7 Adult failure to thrive; L89.156 Pressure-induced deep tissue damage of sacral region; K42.9 Umbilical hernia without obstruction or gangrene; E86.0 Dehydration; E78.5 Hyperlipidemia, unspecified; M48.00 Spinal stenosis, site unspecified; M15.9 Polyosteoarthritis, unspecified; I48.0 Paroxysmal atrial fibrillation; R59.1 Generalized enlarged lymph nodes; Z66 Do not resuscitate; Z68.27 Body mass index [BMI] 27.0-27.9, adult; Z79.4 Long term (current) use of insulin; Z79.891 Long term (current) use of opiate analgesic; Z86.73 Personal history of transient ischemic attack (TIA), and cerebral infarction without residual deficits; Z79.899 Other long term (current) drug therapy; Z79.01 Long term (current) use of anticoagulants; Z85.528 Personal history of other malignant neoplasm of kidney; Z91.040 Latex allergy status; Z88.0 Allergy status to penicillin; Z90.49 Acquired absence of other specified parts of digestive tract; Z90.710 Acquired absence of both cervix and uterus; W05.0XXA Fall from non-moving wheelchair, initial encounter; Y93.9 Activity, unspecified; Y92.9 Unspecified place or not applicable; Y99.9 Unspecified external cause status; Y92.89 Other specified places as the place of occurrence of the external cause
CPT/HCPCS: 36415; 36573; 36600; 71045; 72131; 74018; 74178; 76604; 78580; 80048; 80053; 80076; 81003; 82270; 82375; 82607; 82728; 82746; 82805; 82962; 83540; 83550; 83605; 83735; 84145; 84443; 84484; 85014; 85018; 85025; 86850; 86900; 87426; 89055; 93005; 93306; 93880; 93970; 93971; 94640; 97162; 99291; A6261; C1725; C1893; C9113; J0885; J1100; J1170; J1650; J1815; J1940; J1956; J2185; J2270; J2405; J3370; J3475; J3480; J3490; J7030; J7050; J7060; J7608; J8540; Q9967; U0003; U0005; A4315